=== PATIENT | male | born 1965 | race Caucasian/White ===

== ENCOUNTER → 2020-06-08 | Outpatient (CLI) | payer MEDICARE, MEDICAID | END | disposition home or self-care (01) | LOC: CT 10:47 | PROVIDERS: ATTEND Specialist | DX: J92.9 Pleural plaque without asbestos (principal); E04.2 Nontoxic multinodular goiter; J94.8 Other specified pleural conditions; J43.9 Emphysema, unspecified; R91.1 Solitary pulmonary nodule | CPT/HCPCS: 71250 ==